=== PATIENT | female | born 1925 | race Caucasian/White ===

== ENCOUNTER 2016-08-11 15:01 | Outpatient (CLI) | payer MEDICARE, OTHER | END 2016-08-11 15:02 | disposition home or self-care (01) | DX: I82.412 Acute embolism and thrombosis of left femoral vein (principal) ==

== ENCOUNTER 2016-08-24 16:48 | Outpatient (CLI) | payer MEDICARE, OTHER ==
[2016-08-24] MEDS ORDERED: IOPAMIDOL-300 50 ML VIAL PO ONE (20:30)
[2016-08-24] MEDS ORDERED: IOPAMIDOL-300 100 ML VIAL IVP ONE (20:30)
== END 2016-08-24 16:49 | disposition home or self-care (01) ==
DX: R91.8 Other nonspecific abnormal finding of lung field (principal); R93.2 Abnormal findings on diagnostic imaging of liver and biliary tract; Z85.3 Personal history of malignant neoplasm of breast; I51.7 Cardiomegaly; R59.9 Enlarged lymph nodes, unspecified; R16.0 Hepatomegaly, not elsewhere classified; K57.30 Diverticulosis of large intestine without perforation or abscess without bleeding
CPT/HCPCS: 36415; 71260; 74177; 82565; Q9967

== ENCOUNTER 2016-09-12 | Outpatient (CLI) | payer MEDICARE, OTHER | END 2016-09-12 10:31 | disposition home or self-care (01) ==

== ENCOUNTER 2016-09-20 | Outpatient (CLI) | payer MEDICARE, OTHER | END 2016-09-20 11:01 | disposition home or self-care (01) ==

== ENCOUNTER 2016-10-11 11:00 | Outpatient (CLI) | payer MEDICARE, OTHER | END 2016-10-11 11:01 | disposition home or self-care (01) | DX: Z51.5 Encounter for palliative care (principal); G89.3 Neoplasm related pain (acute) (chronic); F41.9 Anxiety disorder, unspecified; C78.7 Secondary malignant neoplasm of liver and intrahepatic bile duct; C78.00 Secondary malignant neoplasm of unspecified lung; Z85.3 Personal history of malignant neoplasm of breast; G98.8 Other disorders of nervous system; R26.2 Difficulty in walking, not elsewhere classified; R53.83 Other fatigue; Z66 Do not resuscitate ==

== ENCOUNTER 2016-10-25 12:45 | Outpatient (CLI) | payer MEDICARE, OTHER | END 2016-10-25 12:46 | disposition home or self-care (01) | DX: Z51.5 Encounter for palliative care (principal); G89.3 Neoplasm related pain (acute) (chronic); C78.7 Secondary malignant neoplasm of liver and intrahepatic bile duct; C78.00 Secondary malignant neoplasm of unspecified lung; F41.9 Anxiety disorder, unspecified; R09.81 Nasal congestion; Z85.3 Personal history of malignant neoplasm of breast; R60.0 Localized edema; R27.0 Ataxia, unspecified; Z79.899 Other long term (current) drug therapy; Z79.02 Long term (current) use of antithrombotics/antiplatelets; Z86.718 Personal history of other venous thrombosis and embolism; Z66 Do not resuscitate ==